=== PATIENT | female | born 1990 | race American Indian/Alaskan Native ===

== ENCOUNTER 2017-04-30 13:02 | Emergency (ER) | payer SELFPAY ==
[2017-04-30 13:23] VITALS: BP 143/75
--- NOTE | 2017-04-30 13:55 | Emergency Department Report ---
Chief Complaint: Abdominal Pain Stated Complaint: ABDOMINAL PAIN, VOMITING, AND DIARRHEA Time Seen by Provider: 04/30/17 13:50 - HPI History of Present Illness: Patient complaint abdominal pain diarrhea nausea 5 days. She said that she only has pain when she has diarrhea stool and it feels like a sharp pain in as an the first stool that she would never in her abdomen. Denies any urinary burning frequency or urgency. She says she's taken Pepto-Bismol which is not helping. Denies any rectal bleeding. She said the pain. After each bowel movement. Pain is 7 out of 10 and intermittent. Last menstrual period was . Patient was last here on 04/13 2017 and she says she had a urinary tract infection and they told her that it almost went to her kidney and she was placed on Bactrim to go home. Patient denies any fever or chills. Pain is located in her left lower abdomen - ROS Review of Systems: All systems are negative unless stated in HPI above - Exam Vital Signs: Vital Signs 04/30/17 13:20 Temperature 98.2 F Pulse Rate 94 H Respiratory 18 Rate Blood Pressure 143/75 O2 Sat by Pulse 100 Oximetry Physical Exam: Gen.: This is a 26-year-old female well-nourished well-developed does not appeared to be in distress. Abdomen: Tender to palpate the left lower quadrant, no guarding or rebound tenderness. Abdomen is soft and with normal bowel sounds. No CVA tenderness MSE screening note: Focused history and physical exam performed. Due to findings the following was ordered: ED Medical Decision Making - Medical Decision Making MDM: Patient screened by provider in triage area. Appropriate protocol initiated and patient to be seen in main ED by ED Disposition for MSE Condition: Stable Instructions: Abdominal Pain (ED)
[2017-04-30 14:41] LABS: Alanine Aminotransferase 29 units/L (7-56); Albumin 4.5 g/dL (3.9-5); Albumin/Globulin Ratio 1.2 %; Alkaline Phosphatase 98 units/L (35-129); Anion Gap 20 mmol/L; BUN/Creatinine Ratio 18; Blood Urea Nitrogen 14 mg/dL (7-17); Calcium 9.3 mg/dL (8.4-10.2); Carbon Dioxide 22 mmol/L (22-30); Chloride 101.9 mmol/L (98-107); Glucose 85 mg/dL (65-100); Hematocrit 42.7 % (30.3-42.9); Hemoglobin 14.3 gm/dl (10.1-14.3); Lipase 23 units/L (13-60); Mean Corpuscular HGB Conc 34 % (30-34); Mean Corpuscular Hemoglobin 30 pg (28-32); Mean Corpuscular Volume 90 fl (79-97); Platelet Count 314 K/mm3 (140-440); Potassium 4.5 mmol/L (3.6-5.0); Red Blood Count 4.77 M/mm3 (3.65-5.03); Red Cell Distribution Width 13.6 % (13.2-15.2); Sodium 139 mmol/L (137-145); Total Protein 8.2 g/dL (6.3-8.2); White Blood Count 4.7 K/mm3 (4.5-11.0)
[2017-04-30 16:18] LABS: Bilirubin,Urine NEG (Negative); Blood,Urine MOD (Negative); Ketones,Urine NEG (Negative); Leukocyte Esterase,Urine NEG (Negative); Mucus,Urine 3+ /HPF; Nitrite,Urine NEG (Negative); Protein,Urine <15 mg/dL mg/dL (Negative); Urobilinogen,Urine < 2.0 mg/dL (<2.0)
[2017-04-30] MEDS ORDERED: MOTRIN PO ONE ×2 (22:26)
--- NOTE | 2017-04-30 23:12 | Emergency Department Report ---
ED Abdominal Pain HPI - General Chief Complaint: Abdominal Pain Stated Complaint: ABDOMINAL PAIN, VOMITING, AND DIARRHEA Time Seen by Provider: 04/30/17 13:50 Source: patient Mode of arrival: Ambulatory Limitations: No Limitations - History of Present Illness Initial Comments: 26 yo female who comes in today due to nausea, vomiting, and diarrhea times the last three days. She states that she hasn't been able to keep anything down since that time. Patient received po meds in the ED on today and was able to keep it down. Pain described as diffuse and bubbly in nature, with radiation to her back. Has take Pepto-Bismol to assist with the diarrhea. Onset/Timin -: days(s) Location: diffuse Radiation: back Severity: mild Severity scale (0 -10): 3 Quality: cramping Consistency: other (Much improved currently ) Improves With: nothing Worsens With: eating Associated Symptoms: nausea, vomiting, diarrhea Treatments Prior to Arrival: other (Pepto-Bismol ) - Related Data Previous Rx's Medication Instructions Recorded Last Taken Type Erythromycin [Erythromycin Ophth 10 applic OU TID #1 tube 02/11/15 Unknown Rx Oint] Loratadine [Claritin] 10 mg PO DAILY #30 tablet 02/11/15 Unknown Rx Cyclobenzaprine HCl [Flexeril 5 MG 5 mg PO Q8HR PRN #12 tab 05/09/16 Unknown Rx TAB] Ondansetron [Zofran TAB] 4 mg PO Q8HR PRN #14 tablet 05/09/16 Unknown Rx Sulfamethoxazole/Trimethoprim 1 each PO BID #14 tablet 04/13/17 Unknown Rx [Bactrim DS TAB] Ondansetron [Zofran Odt] 4 mg PO Q8HR PRN #20 tab.rapdis 04/30/17 Unknown Rx Allergies Allergy/AdvReac Type Severity Reaction Status Date / Time montelukast sodium Allergy Rash Verified 02/11/15 12:12 [From [facility]] Penicillins Allergy Rash Verified 02/11/15 12:12 shellfish derived Allergy Rash Verified 02/11/15 12:12 ED Review of Systems ROS: Stated complaint: ABDOMINAL PAIN, VOMITING, AND DIARRHEA Other details as noted in HPI Constitutional: denies: chills, fever Eyes: denies: eye pain, eye discharge, vision change ENT: denies: ear pain, throat pain Respiratory: denies: cough, shortness of breath, wheezing Cardiovascular: denies: chest pain, palpitations Endocrine: no symptoms reported Genitourinary: as per HPI Musculoskeletal: back pain. denies: joint swelling, arthralgia Skin: denies: rash, lesions Neurological: denies: headache, weakness, paresthesias Psychiatric: denies: anxiety, depression Hematological/Lymphatic: denies: easy bleeding, easy bruising ED Past Medical Hx - Past Medical History Previous Medical History?: Yes Hx Psychiatric Treatment: Yes (ANXIETY) Hx Asthma: Yes - Social History Smoking Status: Never Smoker Substance Use Type: None - Medications Home Medications: Home Medications Medication Instructions Recorded Confirmed Last Taken Type Erythromycin [Erythromycin Ophth 10 applic OU TID #1 tube 02/11/15 Unknown Rx Oint] Loratadine [Claritin] 10 mg PO DAILY #30 tablet 02/11/15 Unknown Rx Cyclobenzaprine HCl [Flexeril 5 MG 5 mg PO Q8HR PRN #12 tab 05/09/16 Unknown Rx TAB] Ondansetron [Zofran TAB] 4 mg PO Q8HR PRN #14 tablet 05/09/16 Unknown Rx Sulfamethoxazole/Trimethoprim 1 each PO BID #14 tablet 04/13/17 Unknown Rx [Bactrim DS TAB] Ondansetron [Zofran Odt] 4 mg PO Q8HR PRN #20 tab.rapdis 04/30/17 Unknown Rx ED Physical Exam - General Limitations: No Limitations General appearance: alert, in no apparent distress - Head Head exam: Present: atraumatic, normocephalic - Eye Eye exam: Present: normal appearance - ENT ENT exam: Present: mucous membranes moist - Neck Neck exam: Present: normal inspection - Respiratory Respiratory exam: Present: normal lung sounds bilaterally. Absent: respiratory distress - Cardiovascular Cardiovascular Exam: Present: regular rate, normal rhythm. Absent: systolic murmur, diastolic murmur, rubs, gallop - GI/Abdominal GI/Abdominal exam: Present: soft, normal bowel sounds - Rectal Rectal exam: Present: deferred - Extremities Exam Extremities exam: Present: normal inspection - Back Exam Back exam: Present: paraspinal tenderness (bilaterally ) - Neurological Exam Neurological exam: Present: alert, oriented X3 - Psychiatric Psychiatric exam: Present: normal affect, normal mood - Skin Skin exam: Present: warm, dry, intact, normal color. Absent: rash ED Course Vital Signs 04/30/17 13:20 Temperature 98.2 F Pulse Rate 94 H Respiratory 18 Rate Blood Pressure 143/75 O2 Sat by Pulse 100 Oximetry - Reevaluation(s) Reevaluation #1: 04/30/17 23:13 Patient tolerated po meds in the ED. She also states that her n/v/d is much improved. ED Medical Decision Making - Lab Data Result diagrams: 04/30/17 14:05 04/30/17 14:05 Critical care attestation.: If time is entered above; I have spent that time in minutes in the direct care of this critically ill patient, excluding procedure time. ED Disposition Clinical Impression: Viral gastroenteritis Disposition: DC-01 TO HOME OR SELFCARE Is pt being admited?: No Does the pt Need Aspirin: No Condition: Stable Instructions: Abdominal Pain (ED), Gastroenteritis (ED) Additional Instructions: Take medicine as prescribed. May drink Gatorade and/or Powerade as needed for the vomiting and diarrhea. Prescriptions: Ondansetron [Zofran Odt] 4 mg PO Q8HR PRN #20 tab.rapdis PRN Reason: Nausea And Vomiting Time of Disposition: 23:18
== END 2017-04-30 23:33 | disposition home or self-care (01) ==
LOC: ED 13:02
DX: A08.4 Viral intestinal infection, unspecified (principal); Z88.8 Allergy status to other drugs, medicaments and biological substances; Z88.0 Allergy status to penicillin; Z91.013 Allergy to seafood
CPT/HCPCS: 36415; 80053; 81001; 83690; 84703; 85025; 99283

== ENCOUNTER 2018-01-17 22:16 | Emergency (ER) | payer SELFPAY ==
[2018-01-17] MEDS ORDERED: DECADRON ONE (22:40)
[2018-01-17] MEDS ORDERED: DECADRON IM ONE (22:40)
[2018-01-17] MEDS ORDERED: DUONEB *Not for PRN Use IH ONE ×2 (22:40→22:41)
[2018-01-18 00:30] LABS: HCG Qualitative,Urine Negative (Negative)
--- NOTE | 2018-01-18 01:42 | XRay Report ---
FINAL REPORT PROCEDURE: XR CHEST ROUTINE 2V TECHNIQUE: PA and lateral chest radiographs were obtained. CPT 77669 HISTORY: Asthma, SOB, Preg test pending COMPARISON: No prior studies are available for comparison. FINDINGS: Heart: Normal. Mediastinum/Vessels: Normal. Lungs/Pleural space: Normal. Bony thorax: No acute osseous abnormality. Other: IMPRESSION: Normal examination.
--- NOTE | 2018-01-18 03:17 | Emergency Department Report ---
ED Asthma HPI - General Chief Complaint: Adult Asthma Stated Complaint: SOB,CHEST/BACK PAIN Time Seen by Provider: 01/18/18 03:10 Source: patient Mode of arrival: Ambulatory Limitations: No Limitations - History of Present Illness Initial Comments: [age] -[place] female comes in with asthma attack this is been out of her neb treatments for about a week. Patient states she has no issues if she takes her prescription. She complains of shortness of breathing today and asked to borrow 3 albuterol treatments from her neighbor this a.m. noon and around 1600. She reports she had minimal results. Patient denies any cough or other issues. She denies any fever chills no nausea no vomiting. Not any chest pain or recent travels outside the country no sick contact. MD Complaint: "asthma attack" -: days(s) (7) Asthma History: history of frequent attac Context: ran out of meds Treatments Prior to Arrival: inhaled bronchodilator - Related Data Current Asthma Therapy: inhaled bronchodilator Previous Rx's Medication Instructions Recorded Last Taken Type Erythromycin [Erythromycin Ophth 10 applic OU TID #1 tube 02/11/15 Unknown Rx Oint] Loratadine [Claritin] 10 mg PO DAILY #30 tablet 02/11/15 Unknown Rx Cyclobenzaprine HCl [Flexeril 5 MG 5 mg PO Q8HR PRN #12 tab 05/09/16 Unknown Rx TAB] Ondansetron [Zofran TAB] 4 mg PO Q8HR PRN #14 tablet 05/09/16 Unknown Rx Sulfamethoxazole/Trimethoprim 1 each PO BID #14 tablet 04/13/17 Unknown Rx [Bactrim DS TAB] Ondansetron [Zofran Odt] 4 mg PO Q8HR PRN #20 tab.rapdis 04/30/17 Unknown Rx ALBUTEROL Inhaler [ProAir HFA 2 puff IH QID PRN #1 inhalation 01/18/18 Unknown Rx Inhaler] ALBUTEROL NEB's [Proventil 0.083% 2.5 mg IH TID PRN #1 box 01/18/18 Unknown Rx NEBS] Prednisone [predniSONE 10 mg 10 mg PO .TAPER #1 tab.ds.pk 01/18/18 Unknown Rx (6-Day Pack, 21 Tabs)] Allergies Allergy/AdvReac Type Severity Reaction Status Date / Time montelukast sodium Allergy Rash Verified 02/11/15 12:12 [From [facility]] Penicillins Allergy Rash Verified 02/11/15 12:12 shellfish derived Allergy Rash Verified 02/11/15 12:12 ED Review of Systems ROS: Stated complaint: SOB,CHEST/BACK PAIN Other details as noted in HPI Comment: All other systems reviewed and negative Constitutional: denies: chills, fever Respiratory: shortness of breath, wheezing Cardiovascular: denies: chest pain, palpitations ED Past Medical Hx - Past Medical History Previous Medical History?: Yes Hx Psychiatric Treatment: Yes (ANXIETY) Hx Asthma: Yes - Surgical History Past Surgical History?: No - Social History Smoking Status: Never Smoker Substance Use Type: None - Medications Home Medications: Home Medications Medication Instructions Recorded Confirmed Last Taken Type Erythromycin [Erythromycin Ophth 10 applic OU TID #1 tube 02/11/15 Unknown Rx Oint] Loratadine [Claritin] 10 mg PO DAILY #30 tablet 02/11/15 Unknown Rx Cyclobenzaprine HCl [Flexeril 5 MG 5 mg PO Q8HR PRN #12 tab 05/09/16 Unknown Rx TAB] Ondansetron [Zofran TAB] 4 mg PO Q8HR PRN #14 tablet 05/09/16 Unknown Rx Sulfamethoxazole/Trimethoprim 1 each PO BID #14 tablet 04/13/17 Unknown Rx [Bactrim DS TAB] Ondansetron [Zofran Odt] 4 mg PO Q8HR PRN #20 tab.rapdis 04/30/17 Unknown Rx ALBUTEROL Inhaler [ProAir HFA 2 puff IH QID PRN #1 inhalation 01/18/18 Unknown Rx Inhaler] ALBUTEROL NEB's [Proventil 0.083% 2.5 mg IH TID PRN #1 box 01/18/18 Unknown Rx NEBS] Prednisone [predniSONE 10 mg 10 mg PO .TAPER #1 tab.ds.pk 01/18/18 Unknown Rx (6-Day Pack, 21 Tabs)] ED Physical Exam - General Limitations: No Limitations General appearance: alert, in no apparent distress - Head Head exam: Present: atraumatic, normocephalic - Eye Eye exam: Present: EOMI - ENT ENT exam: Present: mucous membranes moist - Neck Neck exam: Present: normal inspection, full ROM. Absent: lymphadenopathy - Respiratory Respiratory exam: Present: normal lung sounds bilaterally. Absent: respiratory distress - GI/Abdominal GI/Abdominal exam: Present: soft, normal bowel sounds - Extremities Exam Extremities exam: Absent: pedal edema ED Course Vital Signs 01/17/18 22:28 Temperature 98.6 F Pulse Rate 84 Respiratory 14 Rate Blood Pressure 129/83 O2 Sat by Pulse 100 Oximetry ED Medical Decision Making - Radiology Data Radiology results: report reviewed, image reviewed FINAL REPORT PROCEDURE: XR CHEST ROUTINE 2V TECHNIQUE: PA and lateral chest radiographs were obtained. CPT 89304 HISTORY: Asthma, SOB, Preg test pending COMPARISON: No prior studies are available for comparison. FINDINGS: Heart: Normal. Mediastinum/Vessels: Normal. Lungs/Pleural space: Normal. Bony thorax: No acute osseous abnormality. Other: IMPRESSION: Normal examination. Transcribed By: CO Dictated By: YENNI DALE MD Electronically Authenticated By: YENNI DALE MD Signed Date/Time: 01/18/18134 DD/ 4 TD/TT: 01/18/18134 - Medical Decision Making Patient has been evaluated by this provider fast track. Patient was given Decadron and DuoNeb in triage. Patient reports that she feels much better. Discussed with patient I would discharge her with albuterol nebulizers as well as albuterol inhaler and a prednisone pack. Discussed the patient she needs to follow up with the primary care provider if symptoms persist or gets worse. Critical care attestation.: If time is entered above; I have spent that time in minutes in the direct care of this critically ill patient, excluding procedure time. ED Disposition Clinical Impression: Acute asthma Disposition: DC-01 TO HOME OR SELFCARE Is pt being admited?: No Does the pt Need Aspirin: No Condition: Stable Instructions: Asthma (ED) Additional Instructions: Take medication as prescribed. If her symptoms persist or gets worse please follow-up with your primary care provider. Prescriptions: ALBUTEROL Inhaler [ProAir HFA Inhaler] 2 puff IH QID PRN #1 inhalation PRN Reason: Shortness Of Breath ALBUTEROL NEB's [Proventil 0.083% NEBS] 2.5 mg IH TID PRN #1 box PRN Reason: Wheezing Prednisone [predniSONE 10 mg (6-Day Pack, 21 Tabs)] 10 mg PO .TAPER #1 tab.ds.pk Referrals: PRIMARY CARE, [Primary Care Provider] - 3-5 Days Forms: Work/School Release Form(ED)
[2018-01-18 05:57] VITALS: BP 130/80
== END 2018-01-18 03:30 | disposition home or self-care (01) ==
LOC: ED 22:16
DX: J45.909 Unspecified asthma, uncomplicated (principal); F41.9 Anxiety disorder, unspecified; Z88.6 Allergy status to analgesic agent; Z88.0 Allergy status to penicillin; Z91.013 Allergy to seafood
CPT/HCPCS: 71046; 81025; 93005; 93010; 96372; 99284; J1100